=== PATIENT | male | born 1945 | race Caucasian/White ===

== ENCOUNTER 2020-05-12 20:50 | Emergency (ER) | payer MEDICARE, OTHER ==
[2020-05-12] MEDS ORDERED: oxyCODONE 5 MG Tab PO ONE ×2 (21:13)
--- NOTE | 2020-05-12 21:16 | EDM.PDOC ---
ED HPI GENERAL MEDICAL PROBLEM - General Chief Complaint: Back Pain or Injury Stated Complaint: S/P SURGERY BACK PAIN Time Seen by Provider: 05/12/20 21:05 Source of Information: Reports: Patient, Family History Limitations: Reports: No Limitations - History of Present Illness INITIAL COMMENTS - FREE TEXT/NARRATIVE: Advised to seek evaluation here per [facility] post surgical consult line as well as experiencing post surgical pain and was not given prescription for pain. states they disposed of his Flexeril today as they felt it was not necessary. This was flushed down the toilet. Onset: Today Duration: Getting Worse Location: Reports: Back Quality: Reports: Pressure, Sharp Severity: Severe Improves with: Reports: None Worsens with: Reports: Movement Context: Reports: Other (Post surgical) Associated Symptoms: Reports: No Other Symptoms Lower Back Pain Score (Numeric/FACES): 10 - Related Data Allergies Allergy/AdvReac Type Severity Reaction Status Date / Time No Known Drug Allergies Allergy Cannot Verified 05/12/20 20:59 Remember Home Meds: Home Meds Aspirin [Aspirin EC] 81 mg PO DAILY 05/12/20 [History] Cyclobenzaprine HCl 10 mg PO TID PRN 05/12/20 [History] Fenofibrate 160 mg PO DAILY 05/12/20 [History] Hydrocodone/Acetaminophen [Hydrocodone-Acetamin 5-325 mg] 1 - 2 tab PO Q6H PRN 05/12/20 [History] Isosorbide Mononitrate [Isosorbide Mononitrate ER] 90 mg PO DAILY 05/12/20 [ History] Levothyroxine Sodium [Synthroid] 150 mg PO DAILY 05/12/20 [History] Metoprolol Succinate [Toprol XL 50mg] 50 mg PO DAILY 05/12/20 [History] Non-Formulary Medication [NF Drug] 1 applic TOP BID 05/12/20 [History] Rosuvastatin Calcium 40 mg PO DAILY 05/12/20 [History] Tamsulosin [Flomax] 0.4 mg PO DAILY 05/12/20 [History] timoloL maleate [Timoptic 0.25% Ophth Soln] 1 drop EYEBOTH BID 05/12/20 [History ] traZODone HCl [Trazodone HCl] 50 mg PO BEDTIME 05/12/20 [History] Past Medical History Musculoskeletal History: Reports: Back Pain, Chronic Neurological History: Reports: Neuropathy, Peripheral, Other (See Below) ( Chronic back pain) - Past Surgical History Neurological Surgical History: Reports: Discectomy (Performed 11 May 2020 10 for [facility]) Social & Family History - Family History Family Medical History: Noncontributory ED ROS GENERAL - Review of Systems Review Of Systems: Comprehensive ROS is negative, except as noted in HPI. Constitutional: Reports: No Symptoms HEENT: Reports: No Symptoms Respiratory: Reports: No Symptoms Cardiovascular: Reports: No Symptoms Endocrine: Reports: No Symptoms GI/Abdominal: Reports: No Symptoms : Reports: No Symptoms Musculoskeletal: Reports: No Symptoms Skin: Reports: No Symptoms Neurological: Reports: No Symptoms Psychiatric: Reports: No Symptoms Hematologic/Lymphatic: Reports: No Symptoms Immunologic: Reports: No Symptoms ED EXAM, GENERAL - Physical Exam Exam: See Below Free Text/Narrative:: Alert oriented in mild painful distress. HEENT negative discharge or deformity No respiratory distress with clear breath sounds Cardiac regular Tenderness to the left lateral aspect of his incision site with a small hematoma formation, firm and tender to touch. No tenderness in this area surrounding the incision site as well. Dressing is dry and intact having been change this morning. No complaint of radiculopathy. Course - Vital Signs Last Recorded V/S: Last Vital Signs Temp 37.1 C 05/12/20 20:54 Pulse 80 05/12/20 20:54 Resp 18 05/12/20 20:54 BP 152/60 H 05/12/20 20:54 Pulse Ox 96 05/12/20 20:54 - Orders/Labs/Meds Meds: Medications Discontinued Medications Generic Name Dose Route Start Last Admin Trade Name Tyler PRN Reason Stop Dose Admin Oxycodone HCl 5 mg 05/12/20 21:13 05/12/20 21:20 Oxycodone PO 05/12/20 21:14 5 mg ONETIME ONE Administration Oxycodone HCl 35 mg 05/12/20 21:13 05/12/20 21:21 Oxycodone PO 05/12/20 21:14 Not Given ONETIME ONE Departure - Departure Time of Disposition: 21:26 Disposition: Home, Self-Care 01 Condition: Good Clinical Impression: Postoperative pain after spinal surgery - Discharge Information *PRESCRIPTION DRUG MONITORING PROGRAM REVIEWED*: Yes *COPY OF PRESCRIPTION DRUG MONITORING REPORT IN PATIENT KYLE: Yes Referrals: PCP,Not In Area [Primary Care Provider] - Forms: ED Department Discharge Additional Instructions: He will be given 1 oxycodone 5 mg here in the emergency department. We will provide you with 75 mg tablets to be taken one every 6 hours, to last until Thursday. Please call the surgical service line immediately Thursday so they can issue a prescription to your local pharmacy. Follow-up with her postoperative instructions that you're given at the time of your discharge. Sepsis Event Note (ED) - Evaluation Sepsis Screening Result: No Definite Risk - Focused Exam Vital Signs: Vital Signs Temp Pulse Resp BP Pulse Ox 05/12/20 20:54 37.1 C 80 18 152/60 H 96 ED Communication - ED Communication Date/Time Date: 05/12/20 - Conversation Summary Summary Comment: Contacted [facility] neurosurgery Department Dr. Moss who was unable to also find discharge summary and prescription. He sincerely apologized for this confusion and recommended providing 5 mg oxycodone to last until Thursday. Providing Mr. Juarez instructions to contact the surgery Department immediately Thursday Of prescription sent to his local pharmacy. - Problem List & Annotations (1) Postoperative pain after spinal surgery SNOMED Code(s): 883533911 Code(s): G89.18 - OTHER ACUTE POSTPROCEDURAL PAIN Status: Acute Current Visit: Yes - Problem List Review Problem List Initiated/Reviewed/Updated: Yes - Assessment/Plan Plan: He will be given 1 oxycodone 5 mg here in the emergency department. We will provide you with 7, 5 mg tablets to be taken one every 6 hours, to last until Thursday. Please call the surgical service line immediately Thursday so they can issue a prescription to your local pharmacy. Follow-up with her postoperative instructions that you're given at the time of your discharge.
== END 2020-05-12 21:35 | disposition home or self-care (01) ==
LOC: KA.ED 20:50
DX: G89.18 Other acute postprocedural pain (principal); G62.9 Polyneuropathy, unspecified; Z79.82 Long term (current) use of aspirin; Z79.899 Other long term (current) drug therapy
CPT/HCPCS: 99283; A9270-GY

== ENCOUNTER 2023-04-05 15:20 | Emergency (ER) | payer MEDICARE, OTHER ==
[2023-04-05] MEDS ORDERED: Lidocaine 2% with EPINEPHrine 1:200,000 20 ML SDV INJECT ONE (15:45)
[2023-04-05] MEDS: Oxymetazoline 0.05% Nasal Spray 15 ML Bottle NAS ONE (16:15)
[2023-04-05] MEDS ORDERED: Sodium Chloride 0.9% 1,000 ML IV ONE ×2 (16:30→17:25)
[2023-04-05 16:38] LABS: BASOPHILS ABSOLUTE AUTO 0.02 10^3/uL (0.00-0.10); BASOPHILS PERCENT AUTO 0.3 % (0.0-1.0); EOSINOPHILS ABSOLUTE AUTO 0.18 10^3/uL (0.10-0.30); EOSINOPHILS PERCENT AUTO 2.8 % (1.0-3.0); HEMATOCRIT 44.4 % (40.0-52.0); HEMOGLOBIN 14.1 g/dL (13.0-17.0); IMMATURE GRAN ABSOLUTE AUTO 0.01 10^3/uL (0.00-0.50); IMMATURE GRAN PERCENT AUTO 0.2 % (0.0-5.0); LYMPHOCYTES ABSOLUTE AUTO 1.65 10^3/uL (1.00-4.00); LYMPHOCYTES PERCENT AUTO 25.9 % (20.0-40.0); MEAN CORPUSCULAR HEMOGLOBIN 29.3 pg (27.0-31.0); MEAN CORPUSCULAR HGB CONC 31.8 g/dL (32.0-36.0); MEAN CORPUSCULAR VOLUME 92.3 fL (82.0-92.0); MONOCYTES ABSOLUTE AUTO 0.72 10^3/uL (0.10-0.80); MONOCYTES PERCENT AUTO 11.3 % (2.0-8.0); NEUTROPHILS ABSOLUTE AUTO 3.79 10^3/uL (2.50-7.00); NEUTROPHILS PERCENT AUTO 59.5 % (50.0-70.0); PLATELET COUNT,PLT 234 10^3/uL (150-400); RED BLOOD CELL COUNT 4.81 10^6/uL (4.50-6.00); RED CELL DISTRIBUTION WIDTH 12.4 % (11.5-14.5); WHITE BLOOD CELL COUNT,WBC 6.37 10^3/uL (5.00-10.00)
[2023-04-05] MEDS ORDERED: Oxymetazoline 0.05% Nasal Spray 15 ML Bottle NAS ONE (17:12)
[2023-04-05] MEDS ORDERED: Etomidate 2 MG/ML 10 ML SDV IVPUSH ONE (17:16)
[2023-04-05] MEDS ORDERED: Succinylcholine 200 MG/10 ML MDV IV ONE (17:16)
[2023-04-05] MEDS ORDERED: Midazolam 1 MG/ML 2 ML SDV IVPUSH ONE (17:20)
[2023-04-05] MEDS ORDERED: Metoprolol Tartrate 5 MG/5 ML SDV IVPUSH ONE (17:26)
[2023-04-05] MEDS ORDERED: fentaNYL 100 MCG/2 ML SDV IVPUSH ONE (17:30)
[2023-04-05] MEDS ORDERED: fentaNYL 100 MCG/2 ML SDV ONE (17:30)
[2023-04-05] MEDS ORDERED: Rocuronium 50 MG/5 ML Vial IV ONE (17:33)
[2023-04-05 17:57] LABS: INR 1.1 (0.9-1.1); PROTHROMBIN TIME 11.1 SEC (9.2-11.2)
[2023-04-05 18:18] LABS: BLOOD UREA NITROGEN,BUN 20 mg/dL (7-18); CALCIUM 8.7 mg/dL (8.7-10.3); CARBON DIOXIDE,CO2 28.4 mmol/L (21.0-32.0); CREATININE 0.86 mg/dL (0.51-1.17); GLUCOSE RANDOM 100 mg/dL (70-140)
[2023-04-05 18:19] LABS: ANION GAP 12.4 mmol/L (5-15); CHLORIDE,CL 104 mmol/L (98-107); ESTIMATED GFR 88 mL/min (>=60); POTASSIUM,K 3.8 mmol/L (3.5-5.1); SODIUM,NA 141 mmol/L (136-145)
[2023-04-06] MEDS: Oxymetazoline 0.05% Nasal Spray 15 ML Bottle NAS ONE ×2 (16:02→16:12)
== END 2023-04-05 17:45 ==
LOC: KA.ED 15:20
DX: R04.0 Epistaxis (principal); I10 Essential (primary) hypertension; I25.2 Old myocardial infarction; Z79.82 Long term (current) use of aspirin
CPT/HCPCS: 30905; 31500; 51702; 71045; 80048; 83605; 84484; 85025; 85610; 85730; 93005; 93010; 96361; 96374; 96375; 99284; 99285-25; C9046; J0330; J2250; J3010; J3490; J7030

== ENCOUNTER 2023-10-15 15:24 | Emergency (ER) | payer MEDICARE, OTHER ==
[2023-10-15 16:21] LABS: APPEARANCE,URINE CLEAR (CLEAR); BILIRUBIN,URINE NEGATIVE (NEGATIVE); COLOR,URINE YELLOW (YELLOW); GLUCOSE,URINE NEGATIVE (NEGATIVE); KETONES,URINE NEGATIVE (NEGATIVE); LEUKOCYTE ESTERASE,URINE NEGATIVE (NEGATIVE); NITRITE,URINE NEGATIVE (NEGATIVE); OCCULT BLOOD,URINE NEGATIVE (NEGATIVE); PROTEIN,URINE NEGATIVE (NEGATIVE); UROBILINOGEN,URINE 0.2 E.U./dL (0.2-1.0)
== END 2023-10-15 17:08 | disposition home or self-care (01) ==
LOC: KA.ED 15:24
DX: R07.81 Pleurodynia (principal); M54.50 Low back pain, unspecified; E03.9 Hypothyroidism, unspecified; E78.00 Pure hypercholesterolemia, unspecified; I10 Essential (primary) hypertension; I25.2 Old myocardial infarction; I25.10 Atherosclerotic heart disease of native coronary artery without angina pectoris; M19.90 Unspecified osteoarthritis, unspecified site; Z79.82 Long term (current) use of aspirin; Z79.899 Other long term (current) drug therapy
CPT/HCPCS: 71101-LT; 81003; 99283; 99284

== ENCOUNTER 2024-01-09 09:47 | Emergency (ER) | payer MEDICARE, OTHER ==
[2024-01-09 10:23] LABS: BASOPHILS ABSOLUTE AUTO 0.04 10^3/uL (0.00-0.10); BASOPHILS PERCENT AUTO 0.5 % (0.0-1.0); EOSINOPHILS ABSOLUTE AUTO 0.59 10^3/uL (0.10-0.30); EOSINOPHILS PERCENT AUTO 7.5 % (1.0-3.0); HEMOGLOBIN 14.9 g/dL (13.0-17.0); IMMATURE GRAN ABSOLUTE AUTO 0.01 10^3/uL (0.00-0.50); IMMATURE GRAN PERCENT AUTO 0.1 % (0.0-5.0); LYMPHOCYTES ABSOLUTE AUTO 1.48 10^3/uL (1.00-4.00); LYMPHOCYTES PERCENT AUTO 18.9 % (20.0-40.0); MEAN CORPUSCULAR HGB CONC 32.4 g/dL (32.0-36.0); MEAN CORPUSCULAR VOLUME 92.7 fL (82.0-92.0); MEAN PLATELET VOLUME 9.8 fL (7.4-10.4); MONOCYTES ABSOLUTE AUTO 0.77 10^3/uL (0.10-0.80); MONOCYTES PERCENT AUTO 9.8 % (2.0-8.0); NEUTROPHILS ABSOLUTE AUTO 4.95 10^3/uL (2.50-7.00); NEUTROPHILS PERCENT AUTO 63.2 % (50.0-70.0); PLATELET COUNT,PLT 293 10^3/uL (150-400); RED BLOOD CELL COUNT 4.96 10^6/uL (4.50-6.00); RED CELL DISTRIBUTION WIDTH 12.7 % (11.5-14.5); WHITE BLOOD CELL COUNT,WBC 7.84 10^3/uL (5.00-10.00)
[2024-01-09] MEDS ORDERED: Sodium Chloride 0.9% 10 ML Syringe FLUSH PRN (10:26)
[2024-01-09 10:34] LABS: ALBUMIN 3.51 g/dL (3.40-5.00); ANION GAP 13.6 mmol/L (5-15); BILIRUBIN TOTAL 0.4 mg/dL (0.2-1.0); CARBON DIOXIDE,CO2 28.5 mmol/L (21.0-32.0); CREATININE 1.15 mg/dL (0.51-1.17); EST CRCL DRUG DOSING (CG) 52.09 mL/min; POTASSIUM,K 4.1 mmol/L (3.5-5.1); PROTEIN TOTAL,TP 6.6 g/dL (6.4-8.2)
[2024-01-09] MEDS: Albuterol/Ipratropium 3.0-0.5 MG/3 ML Neb Soln NEB ONE (10:35)
[2024-01-09 10:48] LABS: CORONAVIRUS COVID-19 NAA NEGATIVE (NEGATIVE); INFLUENZA A NAA NEGATIVE (NEGATIVE); INFLUENZA B NAA NEGATIVE (NEGATIVE); RESPIRATORY SYNCYTIAL VIR NAA NEGATIVE (NEGATIVE)
== END 2024-01-09 11:26 | disposition home or self-care (01) ==
LOC: KA.ED 09:47
DX: J44.1 Chronic obstructive pulmonary disease with (acute) exacerbation (principal); B34.9 Viral infection, unspecified; I10 Essential (primary) hypertension; I25.10 Atherosclerotic heart disease of native coronary artery without angina pectoris; I25.2 Old myocardial infarction; E78.00 Pure hypercholesterolemia, unspecified; E03.9 Hypothyroidism, unspecified; Z79.82 Long term (current) use of aspirin; Z79.899 Other long term (current) drug therapy
CPT/HCPCS: 0241U; 71045; 80053; 83880; 84484; 85025; 93010; 94640; 99284; 99285; J7620-GY

== ENCOUNTER 2024-11-17 15:39 | Emergency (ER) | payer MEDICARE, OTHER ==
[2024-11-17 16:10] LABS: BASOPHILS ABSOLUTE AUTO 0.03 10^3/uL (0.00-0.10); BASOPHILS PERCENT AUTO 0.4 % (0.0-1.0); EOSINOPHILS ABSOLUTE AUTO 0.08 10^3/uL (0.10-0.30); EOSINOPHILS PERCENT AUTO 1.1 % (1.0-3.0); HEMATOCRIT 46.6 % (40.0-52.0); HEMOGLOBIN 15.2 g/dL (13.0-17.0); IMMATURE GRAN ABSOLUTE AUTO 0.01 10^3/uL (0.00-0.04); IMMATURE GRAN PERCENT AUTO 0.1 % (0.0-0.4); LYMPHOCYTES ABSOLUTE AUTO 0.53 10^3/uL (1.00-4.00); LYMPHOCYTES PERCENT AUTO 7.4 % (20.0-40.0); MEAN CORPUSCULAR HEMOGLOBIN 29.5 pg (27.0-31.0); MEAN CORPUSCULAR HGB CONC 32.6 g/dL (32.0-36.0); MEAN CORPUSCULAR VOLUME 90.5 fL (82.0-92.0); MEAN PLATELET VOLUME 10.1 fL (7.4-10.4); MONOCYTES ABSOLUTE AUTO 1.03 10^3/uL (0.10-0.80); MONOCYTES PERCENT AUTO 14.3 % (2.0-8.0); NEUTROPHILS ABSOLUTE AUTO 5.51 10^3/uL (2.50-7.00); NEUTROPHILS PERCENT AUTO 76.7 % (50.0-70.0); PLATELET COUNT,PLT 207 10^3/uL (150-400); RED BLOOD CELL COUNT 5.15 10^6/uL (4.50-6.00); RED CELL DISTRIBUTION WIDTH 13.2 % (11.5-14.5); WHITE BLOOD CELL COUNT,WBC 7.19 10^3/uL (5.00-10.00)
[2024-11-17 16:25] LABS: ANION GAP 12.8 mmol/L (5-15); CALCIUM 9.1 mg/dL (8.7-10.3); CARBON DIOXIDE,CO2 29.5 mmol/L (21.0-32.0); CREATININE 1.24 mg/dL (0.51-1.17); EST CRCL DRUG DOSING (CG) 47.51 mL/min; POTASSIUM,K 4.3 mmol/L (3.5-5.1)
[2024-11-17] MEDS: Acetaminophen 325 MG Tab PO ONE (18:04)
== END 2024-11-17 18:17 | disposition home or self-care (01) ==
LOC: KA.ED 15:39
DX: U07.1 COVID-19 (principal); J12.82 Pneumonia due to coronavirus disease 2019; I25.10 Atherosclerotic heart disease of native coronary artery without angina pectoris; I25.2 Old myocardial infarction; I10 Essential (primary) hypertension; E78.00 Pure hypercholesterolemia, unspecified; K21.9 Gastro-esophageal reflux disease without esophagitis; E03.9 Hypothyroidism, unspecified; Z87.891 Personal history of nicotine dependence; Z79.82 Long term (current) use of aspirin; Z79.51 Long term (current) use of inhaled steroids; Z79.890 Hormone replacement therapy; Z79.899 Other long term (current) drug therapy
CPT/HCPCS: 36415; 71045; 80048; 84484; 85025; 87428-QW; 93005; 99285; A9270-GY

== ENCOUNTER 2024-12-20 08:30 | Emergency (ER) | payer MEDICARE, OTHER ==
[2024-12-20] MEDS ORDERED: Sodium Chloride 0.9% 10 ML Syringe FLUSH PRN (08:43)
[2024-12-20 08:54] LABS: BASOPHILS ABSOLUTE AUTO 0.03 10^3/uL (0.00-0.10); BASOPHILS PERCENT AUTO 0.5 % (0.0-1.0); EOSINOPHILS ABSOLUTE AUTO 0.29 10^3/uL (0.10-0.30); EOSINOPHILS PERCENT AUTO 4.9 % (1.0-3.0); HEMATOCRIT 45.8 % (40.0-52.0); HEMOGLOBIN 14.7 g/dL (13.0-17.0); IMMATURE GRAN ABSOLUTE AUTO 0.01 10^3/uL (0.00-0.04); IMMATURE GRAN PERCENT AUTO 0.2 % (0.0-0.4); LYMPHOCYTES ABSOLUTE AUTO 1.66 10^3/uL (1.00-4.00); LYMPHOCYTES PERCENT AUTO 27.9 % (20.0-40.0); MEAN CORPUSCULAR HEMOGLOBIN 29.1 pg (27.0-31.0); MEAN CORPUSCULAR HGB CONC 32.1 g/dL (32.0-36.0); MEAN CORPUSCULAR VOLUME 90.7 fL (82.0-92.0); MEAN PLATELET VOLUME 10.1 fL (7.4-10.4); MONOCYTES PERCENT AUTO 11.8 % (2.0-8.0); NEUTROPHILS ABSOLUTE AUTO 3.26 10^3/uL (2.50-7.00); NEUTROPHILS PERCENT AUTO 54.7 % (50.0-70.0); PLATELET COUNT,PLT 223 10^3/uL (150-400); RED BLOOD CELL COUNT 5.05 10^6/uL (4.50-6.00); RED CELL DISTRIBUTION WIDTH 13.3 % (11.5-14.5); WHITE BLOOD CELL COUNT,WBC 5.95 10^3/uL (5.00-10.00)
[2024-12-20 09:15] LABS: ALANINE AMINOTRANSFERASE,ALT 27 U/L (14-63); ALKALINE PHOSPHATASE 47 U/L (46-116); ANION GAP 13.7 mmol/L (5-15); ASPARTATE AMNIOTRANSFERASE,AST 19 U/L (15-37); BILIRUBIN TOTAL 0.3 mg/dL (0.2-1.0); BLOOD UREA NITROGEN,BUN 17 mg/dL (7-18); CALCIUM 9.2 mg/dL (8.7-10.3); CARBON DIOXIDE,CO2 28.5 mmol/L (21.0-32.0); CHLORIDE,CL 106 mmol/L (98-107); CREATININE 1.12 mg/dL (0.51-1.17); GLUCOSE RANDOM 124 mg/dL (70-140); POTASSIUM,K 4.2 mmol/L (3.5-5.1); PROTEIN TOTAL,TP 6.7 g/dL (6.4-8.2); SODIUM,NA 144 mmol/L (136-145)
[2024-12-20 09:16] LABS: B-TYPE NATRIURETIC PEPTIDE,BNP 85 pg/mL (0-100); ESTIMATED GFR 66 mL/min (>=60)
[2024-12-20 09:17] LABS: C-REACTIVE PROTEIN < 0.50 mg/dL (0.00-0.50)
[2024-12-20 09:22] LABS: APPEARANCE,URINE CLEAR (CLEAR); BILIRUBIN,URINE NEGATIVE (NEGATIVE); COLOR,URINE YELLOW (YELLOW); GLUCOSE,URINE NEGATIVE (NEGATIVE); KETONES,URINE NEGATIVE (NEGATIVE); LEUKOCYTE ESTERASE,URINE NEGATIVE (NEGATIVE); NITRITE,URINE NEGATIVE (NEGATIVE); OCCULT BLOOD,URINE NEGATIVE (NEGATIVE); PH,URINE 6.5 (5.0-9.0); PROTEIN,URINE NEGATIVE (NEGATIVE); UROBILINOGEN,URINE 0.2 E.U./dL (0.2-1.0)
[2024-12-20] MEDS: Sodium Chloride 0.9% 50 ML IV ONE (09:24)
[2024-12-20] MEDS: Iopamidol 755 Mg/ML 100 ML Bottle IV ONE ×2 (09:24→11:52)
[2024-12-20] MEDS: Sodium Chloride 0.9% 1,000 ML IV ONE (09:36)
[2024-12-20] MEDS: Sodium Chloride 0.9% 100 ML IV SCH (11:52)
== END 2024-12-20 15:30 | disposition home or self-care (01) ==
LOC: KA.ED 08:30
DX: H53.8 Other visual disturbances (principal); R53.1 Weakness; N28.1 Cyst of kidney, acquired; K80.21 Calculus of gallbladder without cholecystitis with obstruction; I25.10 Atherosclerotic heart disease of native coronary artery without angina pectoris; I25.2 Old myocardial infarction; I10 Essential (primary) hypertension; E78.00 Pure hypercholesterolemia, unspecified; J44.9 Chronic obstructive pulmonary disease, unspecified; K21.9 Gastro-esophageal reflux disease without esophagitis; M19.90 Unspecified osteoarthritis, unspecified site; E03.9 Hypothyroidism, unspecified; Z79.82 Long term (current) use of aspirin; Z79.51 Long term (current) use of inhaled steroids; Z79.890 Hormone replacement therapy; Z79.899 Other long term (current) drug therapy
CPT/HCPCS: 36415; 70496; 70498; 71045; 71275; 80053; 81003; 83880; 84484; 85025; 85379; 86140; 87428-QW; 96360; 99285-25; J3490; J7030; Q9967

== ENCOUNTER 2024-12-21 20:31 | Emergency (ER) | payer MEDICARE, OTHER | END 2024-12-22 00:35 | disposition home or self-care (01) | LOC: KA.ED 20:31 | DX: F03.918 Unspecified dementia, unspecified severity, with other behavioral disturbance (principal); G30.1 Alzheimer's disease with late onset; Z91.83 Wandering in diseases classified elsewhere; I10 Essential (primary) hypertension; I25.10 Atherosclerotic heart disease of native coronary artery without angina pectoris; K21.9 Gastro-esophageal reflux disease without esophagitis; M19.90 Unspecified osteoarthritis, unspecified site; E78.00 Pure hypercholesterolemia, unspecified; E03.9 Hypothyroidism, unspecified; Z91.048 Other nonmedicinal substance allergy status; Z79.82 Long term (current) use of aspirin; Z79.890 Hormone replacement therapy; Z79.899 Other long term (current) drug therapy; Z86.16 Personal history of COVID-19 | CPT/HCPCS: 99284 ==

== ENCOUNTER 2024-12-23 21:49 | Emergency (ER) | payer MEDICARE, OTHER ==
[2024-12-23 22:16] LABS: BASOPHILS ABSOLUTE AUTO 0.03 10^3/uL (0.00-0.10); BASOPHILS PERCENT AUTO 0.5 % (0.0-1.0); EOSINOPHILS ABSOLUTE AUTO 0.31 10^3/uL (0.10-0.30); EOSINOPHILS PERCENT AUTO 5.4 % (1.0-3.0); HEMATOCRIT 43.3 % (40.0-52.0); HEMOGLOBIN 14.2 g/dL (13.0-17.0); IMMATURE GRAN ABSOLUTE AUTO 0.01 10^3/uL (0.00-0.04); IMMATURE GRAN PERCENT AUTO 0.2 % (0.0-0.4); LYMPHOCYTES ABSOLUTE AUTO 1.73 10^3/uL (1.00-4.00); LYMPHOCYTES PERCENT AUTO 30.1 % (20.0-40.0); MEAN CORPUSCULAR HEMOGLOBIN 29.6 pg (27.0-31.0); MEAN CORPUSCULAR HGB CONC 32.8 g/dL (32.0-36.0); MEAN CORPUSCULAR VOLUME 90.4 fL (82.0-92.0); MONOCYTES ABSOLUTE AUTO 0.83 10^3/uL (0.10-0.80); MONOCYTES PERCENT AUTO 14.5 % (2.0-8.0); NEUTROPHILS ABSOLUTE AUTO 2.83 10^3/uL (2.50-7.00); NEUTROPHILS PERCENT AUTO 49.3 % (50.0-70.0); PLATELET COUNT,PLT 243 10^3/uL (150-400); RED BLOOD CELL COUNT 4.79 10^6/uL (4.50-6.00); RED CELL DISTRIBUTION WIDTH 13.2 % (11.5-14.5); WHITE BLOOD CELL COUNT,WBC 5.74 10^3/uL (5.00-10.00)
[2024-12-23] MEDS: Lidocaine 1% with EPINEPHrine 1:100,000 20 ML MDV ONE (22:24)
[2024-12-23] MEDS: Lidocaine 1% with EPINEPHrine 1:100,000 20 ML MDV INJECT ONE (22:27)
[2024-12-23] MEDS: Bacitracin/Neomycin/Polymyxin B Oint 0.9 GM U/D Packet ONE (22:31)
[2024-12-23] MEDS: Bacitracin/Neomycin/Polymyxin B Oint 0.9 GM U/D Packet TOP ONE (22:31)
[2024-12-23 22:33] LABS: ALBUMIN 3.7 g/dL (3.40-5.00); ANION GAP 12.5 mmol/L (5-15); BILIRUBIN TOTAL 0.3 mg/dL (0.2-1.0); CALCIUM 9.8 mg/dL (8.7-10.3); CARBON DIOXIDE,CO2 28.9 mmol/L (21.0-32.0); CREATININE 1.59 mg/dL (0.51-1.17); EST CRCL DRUG DOSING (CG) 37.05 mL/min; POTASSIUM,K 4.4 mmol/L (3.5-5.1); PROTEIN TOTAL,TP 6.7 g/dL (6.4-8.2)
[2024-12-23 22:39] LABS: INR 1.1 (0.9-1.1); PROTHROMBIN TIME 12.1 SEC (8.9-13.4)
== END 2024-12-23 23:33 | disposition home or self-care (01) ==
LOC: KA.ED 21:49
DX: S01.01XA Laceration without foreign body of scalp, initial encounter (principal); G30.1 Alzheimer's disease with late onset; I10 Essential (primary) hypertension; I25.2 Old myocardial infarction; I25.10 Atherosclerotic heart disease of native coronary artery without angina pectoris; J44.9 Chronic obstructive pulmonary disease, unspecified; E78.00 Pure hypercholesterolemia, unspecified; E03.9 Hypothyroidism, unspecified; Z91.048 Other nonmedicinal substance allergy status; Z79.82 Long term (current) use of aspirin; Z79.890 Hormone replacement therapy; Z79.899 Other long term (current) drug therapy; Z86.16 Personal history of COVID-19; W19.XXXA Unspecified fall, initial encounter; W22.8XXA Striking against or struck by other objects, initial encounter
CPT/HCPCS: 12001; 36415; 70450; 80053; 85025; 85610; 99283; 99284; J3490

== ENCOUNTER 2024-12-30 12:26 | Emergency (ER) | payer MEDICARE, OTHER ==
[2024-12-30] MEDS: QUEtiapine 25 MG Tab PO ONE (16:05)
[2024-12-30 17:11] VITALS: BP 152/81; PULSE 76
== END 2024-12-30 17:36 ==
LOC: KA.ED 12:26
DX: G30.1 Alzheimer's disease with late onset (principal); R45.88 Nonsuicidal self-harm; I10 Essential (primary) hypertension; I25.10 Atherosclerotic heart disease of native coronary artery without angina pectoris; I25.2 Old myocardial infarction; E78.00 Pure hypercholesterolemia, unspecified; J44.9 Chronic obstructive pulmonary disease, unspecified; K21.9 Gastro-esophageal reflux disease without esophagitis; E03.9 Hypothyroidism, unspecified; Z86.16 Personal history of COVID-19; Z95.1 Presence of aortocoronary bypass graft; Z87.891 Personal history of nicotine dependence; Z79.899 Other long term (current) drug therapy; Z79.51 Long term (current) use of inhaled steroids; Z79.890 Hormone replacement therapy; Z91.048 Other nonmedicinal substance allergy status
CPT/HCPCS: 99284; A9270-GY